=== PATIENT | male | born 1965 | race Caucasian/White ===

== ENCOUNTER → 2020-05-16 | Outpatient (CLI) | payer MEDICARE, OTHER | END | disposition home or self-care (01) | LOC: LABWHC1 13:54 | PROVIDERS: ATTEND Emergency Medicine | DX: Z11.59 Encounter for screening for other viral diseases (principal); Z20.828 Contact with and (suspected) exposure to other viral communicable diseases ==

== ENCOUNTER 2023-07-02 | Emergency (ER) | payer MEDICARE, OTHER ==
[2023-07-02 00:04] VITALS: RESP 18; TEMP 97.6
--- NOTE | 2023-07-02 00:33 | ED ---
General Adult HPI - General Chief complaint: Skin/Abscess/Foreign Body Stated complaint: Lump on back Time Seen by Provider: 07/02/23 00:15 Source: patient Mode of arrival: ambulatory Limitations: no limitations - History of Present Illness Initial comments: Dictation was produced using [employer] dictation software. please excuse any grammatical, word or spelling errors. Chief Complaint: 57-year-old male presents emergency Department with back cyst History of Present Illness: Patient is a 49-year-old male he had a back cyst on his back for several years. He states that he went over to an associate's house and had somebody else look at it. The electric that it states that it probably is a recurrent marcum. He looked at it using 2 [employer] and noticed that it was slightly red and draining green liquid. Denies any pain to the site. No fever or constitutional symptoms. The ROS documented in this emergency department record has been reviewed and confirmed by me. Those systems with pertinent positive or negative responses have been documented in the HPI. All other systems are other negative and/or noncontributory. - Related Data Home Medications Medication Instructions Recorded Confirmed HYDROcodone/APAP 5-325MG [[place] 1 tab PO Q4HR PRN 12/28/15 12/28/15 5-325] QUEtiapine FUMARATE [SEROquel] 150 mg PO HS 12/28/15 12/28/15 Sulfamethoxazole/Trimethoprim 2 tab PO Q12H 12/28/15 12/28/15 [Bactrim DS 800-160 mg] Previous Rx's Medication Instructions Recorded Divalproex ER [Depakote ER] 1,500 mg PO HS 15 Days tab.er.24h 06/12/15 Sulfamethox-Tmp 800-160Mg [Bactrim 2 tab PO Q12HR #20 tab 12/31/15 DS 800-160 mg] Sulfamethox-Tmp 800-160Mg [Bactrim 1 tab PO Q12HR 5 Days #10 tab 07/02/23 DS 800-160 mg] Allergies Allergy/AdvReac Type Severity Reaction Status Date / Time ziprasidone mesylate AdvReac Anaphylaxis Verified 07/02/23 00:04 [From Shukri] Review of Systems ROS Statement: Those systems with pertinent positive or pertinent negative responses have been documented in the HPI. ROS Other: All systems not noted in ROS Statement are negative. Past Medical History Past Medical History: Chest Pain / Angina, Myocardial Infarction ([place]), Supraventricular Tachycardia (SVT) Additional Past Medical History / Comment(s): ONLY HAS 1 FUNCTIONING KIDNY(LT), X2 [place], SVT, 12-28-15 CELLULITIS JUSTIN LEGS (PT STATED TOLD HIM IT WAS MRSA) Last Myocardial Infarction Date:: 1996 History of Any Multi-Drug Resistant Organisms: MRSA Date of last positivie culture/infection: 2014 MDRO Source:: leg, 2015 buttock mrsa Past Surgical History: Orthopedic Surgery Additional Past Surgical History / Comment(s): SHOT MIDDLE TOE OFF LT FOOT, HEMORRHOID SX.12-27-15 IN ER HAD I&D OF RT LEG Past Anesthesia/Blood Transfusion Reactions: No Reported Reaction Past Psychological History: Bipolar, Depression, Schizophrenia Smoking Status: Current every day smoker Past Alcohol Use History: None Reported Past Drug Use History: None Reported - Past Family History Father Family Medical History: No Reported History Additional Family Medical History / Comment(s): Father is . Mother Additional Family Medical History / Comment(s): Mother is alive at age 63. Brother(s) Additional Family Medical History / Comment(s): Patient has 3 brothers and 3 sisters. Patient is not able to relate any major medical problems with them. Patient has one daughter that 17 years old and without major medical problems. General Exam - General Exam Comments Initial Comments: PHYSICAL EXAM: General Impression: Alert and oriented x3, not in acute distress HEENT: Normocephalic atraumatic, extra-ocular movements intact, pupils equal and reactive to light bilaterally, mucous membranes moist. Cardiovascular: Heart regular rate and rhythm Chest: Able to complete full sentences, no retractions, no tachypnea Abdomen: abdomen soft, non-tender, non-distended, no organomegaly Musculoskeletal: Pulses present and equal in all extremities, no peripheral edema Motor: no focal deficits noted Neurological: CN II-XII grossly intact, no focal motor or sensory deficits noted Skin: 1 x 1 cm rubbery mass felt over the mid back 1 inch to the right of midline no drainage, mildly erythematous, nonfluctuant, nontender to palpation, no blanching erythema Psych: Normal affect and mood Limitations: no limitations Course Vital Signs 07/02/23 00:01 Temperature 97.6 F Pulse Rate 101 H Respiratory 18 Rate Blood Pressure 144/92 O2 Sat by Pulse 97 Oximetry Medical Decision Making - Medical Decision Making Was pt. sent in by a medical professional or institution (SANTOS Richey, STAYING MACHINE OPERATOR, urgent care, hospital, or alf...) When possible be specific @ -No Did you speak to anyone other than the patient for history (EMS, parent, family, police, friend...)? What history was obtained from this source @ -No Did you review nursing and triage notes (agree or disagree)? Why? @ -I reviewed and agree with nursing and triage notes Were old charts reviewed (outside hosp., previous admission, EMS record, old EKG, old radiological studies, urgent care reports/EKG's, alf records)? Report findings @ -No old charts were reviewed Differential Diagnosis (chest pain, altered mental status, abdominal pain women, abdominal pain men, vaginal bleeding, musculoskeletal, weakness, fever, dyspnea, syncope, headache, dizziness, GI bleed, back pain, seizure, CVA, palpatations, mental health)? @ -Abscess, cyst, rash EKG interpreted by me (3pts min.). @ -None done X-rays interpreted by me (1pt min.). @ -None done CT interpreted by me (1pt min.). @ -None done U/S interpreted by me (1pt. min.). @ -None done What testing was considered but not performed or refused? (CT, X-rays, U/S, labs)? Why? @ -None What meds were considered but not given or refused? Why? @ -None Did you discuss the management of the patient with other professionals (professionals i.e. SANTOS Richey, STAYING MACHINE OPERATOR, lab, RT, psych nurse, social work specialist, chemical lab supervisor, teacher, senior compliance officer, foster care case manager)? Give summary @ -No Was smoking cessation discussed for >3mins.? @ -No Was critical care preformed (if so, how long)? @ -No Were there social determinants of health that impacted care today? How? (Homelessness, low income, unemployed, alcoholism, drug addiction, transportation, low edu. Level, literacy, decrease access to med. care, correction, rehab)? @ -No Was there de-escalation of care discussed even if they declined (Discuss DNR or withdrawal of care, Hospice)? DNR status @ -No What co-morbidities impacted this encounter? (DM, HTN, Smoking, COPD, CAD, Cancer, CVA, ARF, Chemo, Hep., AIDS, mental health diagnosis, sleep apnea, morbid obesity)? @ -None Was patient admitted / discharged? Hospital course, mention meds given and route, prescriptions, significant lab abnormalities, going to OR and other pert inent info. @ -57-year-old male presents emergency department clinical presentation consistent with skin cyst versus benign mass, i.e. lipoma. Vital signs stable. Patient's history of MRSA. Patient given prescription for Bactrim. Advised follow-up with primary care doctor, Gen. surgeon or elementary reading specialist for removal of soft tissue cyst Undiagnosed new problem with uncertain prognosis? @ -No Drug Therapy requiring intensive monitoring for toxicity (Heparin, Nitro, Insulin, Cardizem)? @ -No Were any procedures done? @ -No Diagnosis/symptom? Acute, or Chronic, or Acute on Chronic? Uncomplicated (without systemic symptoms) or Complicated (systemic symptoms)? @ -1. Soft tissue cyst Side effects of treatment? @ -No Exacerbation, Progression, or Severe Exacerbation? @ -No Poses a threat to life or bodily function? How? (Chest pain, [place], [place], pneumonia, PE, COPD, DKA, ARF, appy, cholecystitis, CVA, Diverticulitis, Homicidal, Suicidal, threat to staff... and all critical care pts) @ -No Disposition Clinical Impression: Cyst Disposition: HOME SELF-CARE Condition: Good Instructions (If sedation given, give patient instructions): Dermal Cyst Excision (DC) Additional Instructions: f/u with PCP, dermatology or general surgery for cyst removal Prescriptions: Sulfamethox-Tmp 800-160Mg [Bactrim DS 800-160 mg] 1 tab PO Q12HR 5 Days #10 tab Is patient prescribed a controlled substance at d/c from ED?: No Referrals: None,Stated [Primary Care Provider] - 1-2 days Sg Foster MD [STAFF PHYSICIAN] - 1-2 days Time of Disposition: 00:33
[2023-07-02 01:29] VITALS: BP 142/70; PULSE 78
== END 2023-07-02 01:23 | disposition home or self-care (01) ==
LOC: EC
DX: L72.0 Epidermal cyst (principal); I25.2 Old myocardial infarction; F31.9 Bipolar disorder, unspecified; F17.200 Nicotine dependence, unspecified, uncomplicated; Z88.8 Allergy status to other drugs, medicaments and biological substances; Z79.899 Other long term (current) drug therapy
CPT/HCPCS: 99282